=== PATIENT | female | born 1960 | race Caucasian/White ===

== ENCOUNTER 2024-11-08 11:44 | Inpatient (IN) | payer OTHER ==
[~2024-11-08] VITALS: Ht 165.1 cm; Wt 84.8 kg
[2024-11-08 12:34] LABS: BASOPHILS % 0.4 % (0.0-2.0); EOSINOPHILS % 2.5 % (0.0-5.0); HEMATOCRIT. 30.8 % (36.0-48.0); HEMOGLOBIN. 10.4 g/dL (12.0-16.0); LYMPHOCYTES % 24.2 % (20.0-50.0); MEAN CORPUSCULAR HEMOGLOBIN 31.4 pg (28.0-32.0); MEAN CORPUSCULAR HGB CONC 33.8 g/dL (31.0-37.0); MEAN CORPUSCULAR VOLUME 92.9 fL (81.0-99.0); MEAN PLATELET VOLUME 8.3 fl (7.4-10.4); MONOCYTES % 10.5 % (2.0-8.0); NEUTROPHILS % 62.4 % (40.0-76.0); PLATELET 329 x1000/uL (130-400); RED BLOOD CELL COUNT 3.32 mill/uL (4.2-5.4); RED CELL DISTRIBUTION WIDTH 13.6 % (11.6-14.6); WHITE BLOOD COUNT 8.4 x1000/uL (4.5-11.0)
[2024-11-08 12:45] LABS: CHLORIDE 104 mEq/L (98-107); POTASSIUM 3.7 mEq/L (3.5-5.1); SODIUM 137 mEq/L (136-145)
[2024-11-08 12:46] LABS: CALCIUM 9.6 mg/dL (8.7-10.4); CARBON DIOXIDE 27 mEq/L (21-32)
[2024-11-08 12:51] LABS: CREATININE 1.2 mg/dL (0.6-1.0); GLUCOSE 110 mg/dL (70-105); UREA NITROGEN BLOOD 14 mg/dL (9-23)
[2024-11-08 12:53] LABS: ALANINE AMINOTRANSFERASE 30 IU/L (10-49); ALBUMIN 3.9 g/dL (3.2-4.8); ASPARTATE AMINOTRANSFERASE 23 IU/L (<34); BILIRUBIN DIRECT < 0.1 mg/dL (<=3.0); BILIRUBIN TOTAL 0.3 mg/dL (0.1-1.0); PROTEIN TOTAL 7.2 g/dL (6.0-8.3)
[2024-11-08 13:14] LABS: PROTHROMBIN TIME 10.9 sec (9.6-11.0)
[2024-11-08 13:20] LABS: TROPONIN I HIGH SENSITIVITY < 4 ng/L (3.0-34)
[2024-11-08 14:36] LABS: CLARITY URINE CLOUDY (CLEAR); COLOR URINE YELLOW (YELLOW); GLUCOSE URINE NEGATIVE (NEGATIVE); KETONES URINE NEGATIVE (NEGATIVE); LEUKOCYTE ESTERASE URINE 1+ (NEGATIVE); NITRITE URINE NEGATIVE (NEGATIVE); OCCULT BLOOD URINE NEGATIVE (NEGATIVE); PROTEIN URINE 1+ (NEGATIVE); SPECIFIC GRAVITY URINE 1.008 (1.005-1.030); UROBILINOGEN URINE 0.2 E.U./dL (0.2-1.0)
[2024-11-08 15:11] LABS: SQUAMOUS EPITHELIAL CELL URINE 1+ /lpf (RARE/1+)
[2024-11-08 15:12] LABS: HYALINE CASTS URINE 0-5 /lpf
[2024-11-08 15:13] LABS: RBC URINE 0-2 /hpf (0-2)
[2024-11-08 15:14] LABS: BACTERIA URINE 3+
[2024-11-08 16:15] VITALS: BP 185/93; PULSE 91; RESP 20; TEMP 36.2; O2SAT 99
[2024-11-08] MEDS ORDERED: GABA-534 PO (16:49)
[2024-11-08] MEDS ORDERED: HYDR-459 PO (16:49)
[2024-11-08] MEDS ORDERED: FERR325T6 PO (16:49)
[2024-11-08] MEDS ORDERED: ATOR40TA70 PO (16:49)
[2024-11-08] MEDS ORDERED: CHLO25TA2 PO (16:49)
[2024-11-08] MEDS ORDERED: METF-1149 PO (16:49)
[2024-11-08] MEDS ORDERED: TAMS-54 PO (16:49)
[2024-11-08 17:00] VITALS: BP 185/93; PULSE 91; RESP 20; TEMP 36.2
[2024-11-08] MEDS ORDERED: DEXTROSE 50% WATER 50ML SYRINGE IV PRN (17:45)
[2024-11-08] MEDS: METOPROLOL TARTRATE 25MG TABLET PO SCH (17:50)
[2024-11-08] MEDS: INSULIN LISPRO 100 UNITS/ML SUBCUT SCH (21:28)
[2024-11-08] MEDS: BLOOD SUGAR DIAGNOSTIC STRIP TEST SCH (21:29)
[2024-11-08 21:30] VITALS: BP 169/81; PULSE 74; RESP 16; TEMP 36.7
[2024-11-08 21:32] VITALS: BP 169/81; PULSE 74; RESP 18; TEMP 36.7
[2024-11-08] MEDS ORDERED: HYDROCODONE/ACETAMINOPHEN 5/325MG TABLET PO PRN (22:30)
[2024-11-08] MEDS ORDERED: CLONIDINE 0.1MG TABLET PO PRN (22:30)
[2024-11-08] MEDS ORDERED: ONDANSETRON HCL 4MG/2ML INJ IV PRN (22:30)
[2024-11-08] MEDS ORDERED: MORPHINE SULFATE 2 MG/ML INJ (NOT FOR IM USE) IV PRN (22:30)
[2024-11-09 02:46] VITALS: BP 117/55; PULSE 72; RESP 16; TEMP 37
[2024-11-09 04:00] VITALS: BP 144/76; PULSE 72; RESP 16; TEMP 36.7
[2024-11-09] MEDS: HYDRALAZINE HCL 25MG TABLET PO SCH (07:33)
[2024-11-09 08:00] VITALS: BP 124/67; PULSE 64; RESP 20; TEMP 35.6; O2SAT 100
[2024-11-09] MEDS: ENOXAPARIN 40MG/0.4ML SYR SUBCUT SCH (08:57)
[2024-11-09 12:00] VITALS: BP 136/65; PULSE 69; RESP 20; TEMP 36.5; O2SAT 99
[2024-11-09 14:05] VITALS: BP 136/65; PULSE 69; TEMP 97.7; O2SAT 99
== END 2024-11-09 14:33 | disposition home or self-care (01) | DRG 199 ==
LOC: ER 11:44 → EDBEDREQ 12:12 → 8WST 14:38 → EDBEDREQTM 14:40 → EDBEDREQ 14:40
PROVIDERS: ADMIT Internal Medicine Nephrology; ATTEND Internal Medicine Nephrology
DX: I16.1 Hypertensive emergency (principal); N17.9 Acute kidney failure, unspecified; E11.22 Type 2 diabetes mellitus with diabetic chronic kidney disease; E78.00 Pure hypercholesterolemia, unspecified; I12.9 Hypertensive chronic kidney disease with stage 1 through stage 4 chronic kidney disease, or unspecified chronic kidney disease; N18.9 Chronic kidney disease, unspecified; Z85.3 Personal history of malignant neoplasm of breast
CPT/HCPCS: 36415; 71045; 80048; 80076; 81003; 82962; 83036; 83880; 84484; 85025; 93005; 93970; 99285; A4606; J1650; J1815